=== PATIENT | male | born 1965 | race Caucasian/White ===

== ENCOUNTER → 2019-01-13 | Outpatient (CLI) | payer OTHER ==
[~2019-01-13] MED LIST: ACYCLOVIR 800800 M1 PO; ACYCLOVIR 800800 MG PO; ALTACE10 M1 PO; ASPIRIN325 PO; CARVEDILOL25 MG PO; CELEBREX 200 M200 M1 PO; CLEOCIN HCL150 MG PO; COMBIVIR TABLE1 EACH PO; DOXYCYCLINE 10100 M1 PO; FISH OIL 1,2001 EAC3 PO; FLECTOR PATCH1 EA; FOLIC ACID1 MG PO; METHOTREXATE 22.5 M1 PO; MS CONTIN30 MG PO; MULTIVITAMINS PO; NEURONTIN 300300 M1 PO; NEURONTIN 400400 M1 PO; NITROSTAT0.4 MG SUBLING; OXYCODONE-ACET1 EACH PO; OXYCODONE-APAP1 EAC6 PO; OXYCONTIN40 MG PO; PACERONE 200 M200 M1 PO; PACERONE100 MG PO; PERCOCET 10-321 EACH PO; PREDNISONE 20 M20 M1 PO; PREDNISONE 5 MG5 MG PO; RAMIPRIL PO; REMICADE 1100 MG/VIA; SUSTIVA600 MG PO; SYNTHROID175 MCG PO; TRIPLE ANTIBIO1 EACH TOP
[2019-01-13 11:41] LABS: DIRECT BILIRUBIN < 0.1 mg/dL (<0.1-0.3); SGOT 70 U/L (15-37); SGPT 149 U/L (30-65); TOTAL BILIRUBIN 0.3 mg/dL (<0.1-1.0); TOTAL PROTEIN 7.3 g/dL (6.4-8.2)
== END ==
LOC: RAD 10:34
PROVIDERS: Internal Medicine Cardiovascular Disease
DX: I47.2 Ventricular tachycardia (principal); I51.7 Cardiomegaly; Z95.810 Presence of automatic (implantable) cardiac defibrillator